=== PATIENT | female | born 1975 | race Caucasian/White ===

== ENCOUNTER 2022-10-10 07:40 | Outpatient (CLI) | payer OTHER, SELFPAY ==
[2022-10-10 10:48] LABS: Albumin* 4.4 g/dL (3.3-5.0); Chloride* 104 mmol/L (96-114); Potassium* 4.4 mmol/L (3.6-5.1); Sodium* 138 mmol/L (135-149)
[2022-10-10 10:50] LABS: Cholesterol* 218 mg/dL (90-199)
[2022-10-10 10:51] LABS: Alanine Aminotransferase* 67 U/L (4-35); Alkaline Phosphatase* 75 U/L (40-150); Aspartate Amino Transferase* 54 U/L (12-35); Bilirubin Total* 0.4 mg/dL (0.1-1.5); Blood Urea Nitrogen* 16 mg/dL (5-24); Calcium* 8.9 mg/dL (8.4-10.6); Carbon Dioxide* 26 mmol/L (20-32); Creatinine* 0.7 mg/dL (0.5-1.5); Estimated Glomerular Filt Rate 106 ml/min; Glucose* 111 mg/dL (60-115); Total Protein* 7.1 g/dL (6.0-8.3); Triglycerides* 178 mg/dL (40-149)
[2022-10-10 10:52] LABS: HDL Cholesterol* 46 mg/dL (>=50); LDL Cholesterol Calculated 136 mg/dL (<100)
[2022-10-10 11:40] LABS: Vitamin B12* 287 pg/mL (243-894)
== END 2022-10-10 07:41 | disposition home or self-care (01) ==
PROVIDERS: PCP Family Medicine; Visit Provider Family Medicine
DX: Z01.419 Encounter for gynecological examination (general) (routine) without abnormal findings (principal); R53.83 Other fatigue; E78.5 Hyperlipidemia, unspecified; R73.09 Other abnormal glucose; F41.9 Anxiety disorder, unspecified
CPT/HCPCS: 80053; 80061; 82607; 84439; 84443

== ENCOUNTER 2022-12-24 13:42 | Outpatient (CLI) | payer OTHER, SELFPAY ==
--- NOTE | 2022-12-24 14:00 | CRLHL7_ITS ---
For Patients: As a result of the Century Cures Act, medical imaging exams and procedure reports are released immediately into your electronic medical record. You may view this report before your referring provider. If you have questions, please contact your health care provider. BILATERAL SCREENING MAMMOGRAM WITH COMPUTER-AIDED DETECTION AND TOMOSYNTHESIS TECHNIQUE: CC and MLO views were obtained. These mammographic images have been obtained using full-field digital technique. These mammographic images were interpreted with the benefit of computer-aided detection. Breast Tomosynthesis was used in this interpretation. COMPARISON FILM: 06/01/20, 01/12/19, 05/10/17. FINDINGS: The breasts are heterogeneously dense, which may obscure small masses IMPRESSION: There is no radiographic evidence for malignancy. ASSESSMENT: BI-RADS Category 1: Negative RECOMMENDATION: Routine screening mammogram in 1 year. A lay language report of this examination will be provided to the patient. Christofer Wallace M.D. Diagnostic Radiologist [email or web address] CARISSA/Dictated by: Christofer Wallace MD @ 12/25/2022 1:10:00 PM (Electronically Signed)
== END 2022-12-24 13:43 | disposition home or self-care (01) ==
LOC: MAMMO 13:43
PROVIDERS: PCP Family Medicine; Visit Provider Family Medicine
DX: Z12.31 Encounter for screening mammogram for malignant neoplasm of breast (principal); R92.2 Inconclusive mammogram
CPT/HCPCS: 77063; 77067

== ENCOUNTER 2024-04-27 07:50 | Outpatient (CLI) | payer OTHER, SELFPAY ==
--- OUTSIDE RECORDS SUMMARY | 2024-04-27 13:07 | XMS_ITS | Clinical Summary ---
Author Organization [facility] Address [place], [place] [address] Care Team Providers Care Peanut Picker Name Role Phone Sunitha Tristan MD Primary Care Provider + Allergies No known active allergies Medications Medication Sig Dispensed Refills Start Date End Date Status levothyroxine (SYNTHROID) 50 mcg tablet Take 1 tablet by mouth before breakfast. 0 12/19/2016 Active Social History Tobacco Use Types Packs/Day Years Used Date Smoking Tobacco: Never Sex and Gender Information Value Date Recorded Sex Assigned at Not on file Gender Identity Not on file Sexual Orientation Not on file Obstetrics History Last Filed Vital Signs Vital Sign Reading Time Taken Comments Blood Pressure 123/86 12/19/2016 9:14 AM WELDING MACHINE OPERATOR ARC Pulse 68 12/19/2016 9:14 AM WELDING MACHINE OPERATOR ARC Temperature - - Respiratory Rate - - Oxygen Saturation 98% 12/19/2016 9:14 AM WELDING MACHINE OPERATOR ARC Inhaled Oxygen Concentration - - Weight 106.2 kg (234 lb 3.2 oz) 12/19/2016 9:14 AM WELDING MACHINE OPERATOR ARC Height - - Body Mass Index - - Plan of Treatment Health Maintenance Due Date Last Done Comments Tdap 1984 Depression screening for age 12+ 1985 HIV for age 15-65 1988 BMI (ht and wt on same day) for age 18+ 1991 Hepatitis C screening for age 18-79 1991 Tetanus booster 1993 Colonoscopy through age 75 2018 Lipids for age 45-75 2018 Mammogram for age 45-75 2018 Zoster (shingles) series for age 50+ (1 of 2) 2023 COVID-19 vaccine series ( - 2022-24 season) 2023 01/13/2021 Influenza for age 50-64 06/14/2024 Pap test for age 21-65 07/12/2024 , 07/12/2021, 03/21/2016, Additional history exists Pneumococcal series for age 6-64 Aged Out No longer eligible based on patient's age to complete this topic Procedures Procedure Name Priority Date/Time Associated Diagnosis Comments HPV THIN PREP Routine 07/12/2021 11:05 AM CDT from Last 3 Months or Most Recently Relevant to Health Maintenance Results * HPV HIGH RISK (07/12/2021 11:05 AM CDT) TYPE 16 Negative Negative 07/17/2021 11:17 AM CDT [facility] TYPE 18 Negative Negative 07/17/2021 11:17 AM CDT [facility] OTHER HIGH RISK TYPES Negative Negative 07/17/2021 11:17 AM CDT [facility] Other (Cervical/Vagina l) 07/12/2021 11:05 AM CDT 07/13/2021 10:33 AM CDT Narrative [facility] - 07/17/2021 11:17 AM CDT HPV types 16, 18, 31, 33, 35, 39, 45, 51, 52, 56, 58, 59, 66 and 68 DNA were undetectable or below the pre-set threshold. Methodology: Micah Ross 4800 HPV Test Sunitha Tristan MD MICROBIOLOGY [facility] [address] [place] [address], [place] from Last 3 Months or Most Recently Relevant to Health Maintenance Care Teams Peanut Picker Relationship Specialty Start Date End Date Sunitha Tristan MD [address] [place] [address] PCP - General Family Practice 12/11/16
== END 2024-04-27 07:51 | disposition home or self-care (01) ==
LOC: NFLDREF 13:05
PROVIDERS: PCP Family Medicine; Referring Provider Family Medicine; Visit Provider Family Medicine
DX: Z00.00 Encounter for general adult medical examination without abnormal findings (principal); E53.8 Deficiency of other specified B group vitamins; E78.5 Hyperlipidemia, unspecified; I10 Essential (primary) hypertension; R73.09 Other abnormal glucose; R79.89 Other specified abnormal findings of blood chemistry
CPT/HCPCS: 80053; 80061; 82607; 84439; 84443

== ENCOUNTER 2024-07-08 09:58 | Outpatient (CLI) | payer OTHER, SELFPAY ==
--- OUTSIDE RECORDS SUMMARY | 2024-07-08 10:06 | XMS_ITS | Clinical Summary ---
Author Organization [facility] Address [place], [place] [address] Care Team Providers Care Tool Clerk Name Role Phone Sunitha Tristan MD Primary [...] Comments Blood Pressure 123/86 12/19/2016 9:14 AM WEATHERIZATION COORDINATOR Pulse 68 12/19/2016 9:14 AM WEATHERIZATION COORDINATOR Temperature - - Respiratory Rate - - Oxygen Saturation 98% 12/19/2016 9:14 AM WEATHERIZATION COORDINATOR Inhaled Oxygen Concentration - - Weight 106.2 kg (234 lb 3.2 oz) 12/19/2016 9:14 AM WEATHERIZATION COORDINATOR Height - - Body Mass Index - [...] of 2) 2023 COVID-19 vaccine series ( season) 2024 01/13/2021 Influenza for age 50-64 06/14/2024 Pap test for age 21-65 07/12/2024 , 07/12/2021, 03/21/2016, Additional history exists Pneumococcal series for age 6-64 Aged Out No longer eligible based on patient's age to complete this topic Procedures Procedure Name Priority Date/Time Associated Diagnosis Comments HPV HIGH RISK Routine 07/12/2021 11:05 AM CDT from Last 3 Months or Most Recently Relevant to Health Maintenance Results * HPV HIGH RISK (07/12/2021 11:05 AM CDT) TYPE 16 Negative Negative 07/17/2021 11:17 AM CDT [facility] TRAL LABORATORY TYPE 18 Negative Negative 07/17/2021 11:17 AM CDT [facility] OTHER HIGH RISK TYPES Negative Negative 07/17/2021 11:17 AM CDT [facility] Other (Cervical/Vagina l) 07/12/2021 11:05 AM CDT 07/13/2021 10:33 AM CDT Narrative [facility] - 07/17/2021 11:17 AM CDT HPV types 16, 18, 31, 33, 35, 39, 45, 51, 52, 56, 58, 59, 66 and 68 DNA were undetectable or below the pre-set threshold. Methodology: Micah Ross 4800 HPV Test Sunitha Tristan MD MICROBIOLOGY [facility] [address] [place] [address], [place] from Last 3 Months or Most Recently Relevant to Health Maintenance Care Teams Tool Clerk Relationship Specialty Start Date End Date Sunitha Tristan MD [address] [place] [address] PCP - General Family Practice 12/11/16
--- NOTE | 2024-07-08 10:15 | CRLHL7_ITS ---
For Patients: As a result of the Century Cures Act, medical imaging exams and procedure reports are released immediately into your electronic medical record. You may view this report before your referring provider. If you have questions, please contact your health care provider. BILATERAL SCREENING MAMMOGRAM WITH COMPUTER-AIDED DETECTION AND TOMOSYNTHESIS TECHNIQUE: CC and MLO views were obtained. These mammographic images have been obtained using full-field digital technique. These mammographic images were interpreted with the benefit of computer-aided detection. Breast Tomosynthesis was used in this interpretation. COMPARISON FILM: 12/24/22, 06/01/20, 01/12/19. FINDINGS: There are scattered areas of fibroglandular density IMPRESSION: There is no radiographic evidence for malignancy. ASSESSMENT: BI-RADS Category 1: Negative RECOMMENDATION: Routine screening mammogram in 1 year. A lay language report of this examination will be provided to the patient. Christofer Wallace M.D. Diagnostic Radiologist [email or web address] CARISSA/Dictated by: Christofer Wallace MD @ 07/16/2024 12:21:00 PM (Electronically Signed)
== END 2024-07-08 09:59 | disposition home or self-care (01) ==
LOC: MAMMO 09:58
PROVIDERS: PCP Family Medicine; Visit Provider Family Medicine
DX: Z12.31 Encounter for screening mammogram for malignant neoplasm of breast (principal)
CPT/HCPCS: 77063; 77067

== ENCOUNTER 2024-10-26 08:08 | Outpatient (CLI) | payer BC, SELFPAY | END 2024-10-26 08:09 | disposition home or self-care (01) | LOC: NFLDREF 11-02 23:15 | PROVIDERS: PCP Family Medicine; Referring Provider Family Medicine; Visit Provider Family Medicine | DX: I10 Essential (primary) hypertension (principal); R73.09 Other abnormal glucose; E53.8 Deficiency of other specified B group vitamins; R79.89 Other specified abnormal findings of blood chemistry; E78.5 Hyperlipidemia, unspecified; Z11.59 Encounter for screening for other viral diseases | CPT/HCPCS: 80053; 80061; 82607; 84439; 84443; 86803 ==

== ENCOUNTER 2024-12-07 11:16 | Outpatient (CLI) | payer BC, SELFPAY ==
--- NOTE | 2024-12-07 12:29 | P.ANES_ITS ---
Anesthesia Charges Start Date/Time Anesthesia Start Date: 12/07/24 Anesthesia Start Time: 12:06 Stop Date/Time Anesthesia Stop Date: 12/07/24 Anesthesia Stop Time: 12:26 Coding CPT Codes CPT Codes: PHILLIP LWR INTST SCR COLSC - 78076 ([id number]) P2 - PATIENT W/MILD SYST DISEASE, QK - HOOP MACHINE OPERATOR 2-4 CNCRNT ANES PROC, QX - CRYSTAL INSPECTOR SVC W/ MD MED DIRECTION
--- NOTE | 2024-12-07 12:29 | P.ANES_ITS ---
Anesthesia Charges Start Date/Time Anesthesia Start Date: 12/07/24 Anesthesia Start Time: 12:06 Stop Date/Time Anesthesia Stop Date: 12/07/24 Anesthesia Stop Time: 12:26 Coding CPT Codes CPT Codes: PHILLIP LWR INTST SCR COLSC - 83831 ([id number]) P2 - PATIENT W/MILD SYST DISEASE, QK - CANDLE WRAPPING MACHINE OPERATOR 2-4 CNCRNT ANES PROC, QX - BOTTOM CEMENTER SVC W/ MD MED DIRECTION
--- NOTE | 2024-12-07 12:29 | W.ANESCHARGE ---
Anesthesia Charges Start Date/Time Anesthesia Start Date: 12/07/24 Anesthesia Start Time: 12:06 Stop Date/Time Anesthesia Stop Date: 12/07/24 Anesthesia Stop Time: 12:26 Coding CPT Codes CPT Codes: PHILLIP LWR INTST SCR COLSC - 76882 ([id number]) P2 - PATIENT W/MILD SYST DISEASE, QK - WASTE SALVAGER 2-4 CNCRNT ANES PROC, QX - CASH REGISTER OPERATOR SVC W/ MD MED DIRECTION
--- NOTE | 2024-12-07 12:29 | W.ANESCHARGE ---
Anesthesia Charges Start Date/Time Anesthesia Start Date: 12/07/24 Anesthesia Start Time: 12:06 Stop Date/Time Anesthesia Stop Date: 12/07/24 Anesthesia Stop Time: 12:26 Coding CPT Codes CPT Codes: PHILLIP LWR INTST SCR COLSC - 99989 ([id number]) P2 - PATIENT W/MILD SYST DISEASE, QK - MERINGUER 2-4 CNCRNT ANES PROC, QX - BUSINESS SUPPORT PROFESSIONAL SVC W/ MD MED DIRECTION
== END 2024-12-07 11:17 | disposition home or self-care (01) ==
LOC: OP CLINIC 11:17
PROVIDERS: PCP Family Medicine; Visit Provider Internal Medicine
DX: Z12.11 Encounter for screening for malignant neoplasm of colon (principal); Z86.0100 Personal history of colon polyps, unspecified; K57.30 Diverticulosis of large intestine without perforation or abscess without bleeding
CPT/HCPCS: 00812; 45378; J2704

== ENCOUNTER 2025-04-10 14:35 | Emergency (ER) | payer BC, SELFPAY ==
--- OUTSIDE RECORDS SUMMARY | 2025-04-10 14:37 | XMS_ITS | Clinical Summary ---
Author Organization [facility] Address [address] [place] [address] Care Team Providers Care Sports Marketer Name Role Phone Sunitha Tristan MD Primary Care Provider + Allergies No known active allergies Medications levothyroxine (SYNTHROID) 50 mcg tablet Take 1 tablet by mouth before breakfast. 0 12/19/2016 Active Social History Tobacco Use Types Packs/Day Years Used Date Smoking Tobacco: Never Comments Unknown Sex and Gender Information Value Date Recorded Sex Assigned at Not on file Legal Sex Female 3:04 PM CDT Gender Identity Not on file Sexual Orientation Not on file Obstetrics History Last Filed Vital Signs Vital Sign Reading Time Taken Comments Blood Pressure 123/86 12/19/2016 9:14 AM MAINFRAME CONSULTANT Pulse 68 12/19/2016 9:14 AM MAINFRAME CONSULTANT Temperature - - Respiratory Rate - - Oxygen Saturation 98% 12/19/2016 9:14 AM MAINFRAME CONSULTANT Inhaled Oxygen Concentration - - Weight 106.2 kg (234 lb 3.2 oz) 12/19/2016 9:14 AM MAINFRAME CONSULTANT Height - - Body Mass Index - - Plan of Treatment Health Maintenance Due Date Last Done Comments Tdap 1984 Depression screening for age 12+ 1985 HIV for age 15-65 1988 BMI (ht and wt on same day) for age 18+ 1991 Hepatitis C screening for ag e 18-79 1991 Hepatitis B series for 19+ ( 1 of 3 - 19+ 3-dose series) 1992 Tetanus booster 1993 Colonoscopy through age 75 2018 Lipids for age 45-75 2018 Mammogram for age 45-75 2018 Pneumococcal series for age 50+ (1 of 1 - PCV) 2023 Zoster (shingles) series for age 50+ (1 of 2) 2023 COVID-19 vaccine series (2 - season) 2024 01/13/2021 Pap test for age 21-65 07/12/2024 , 07/12/2021, 03/21/2016, Additional history exists Influenza Vaccine (Season Ended) 2025 Procedures Procedure Name Priority Date/Time Associated Diagnosis Comments HPV HIGH RISK Routine 07/12/2021 11:05 AM CDT from Last 3 Months or Most Recently Relevant to Health Maintenance Results * HPV HIGH RISK (07/12/2021 11:05 AM CDT) TYPE 16 Negative Negative 07/17/2021 11:17 AM CDT [facility] TYPE 18 Negative Negative 07/17/2021 11:17 AM CDT [facility] OTHER HIGH RISK TYPES Negative Negative 07/17/2021 11:17 AM CDT [facility] Other (Cervical/Vagina l) 07/12/2021 11:05 AM CDT 07/13/2021 10:33 AM CDT Narrative [facility] - 07/17/2021 11:17 AM CDT HPV types 16, 18, 31, 33, 35, 39, 45, 51, 52, 56, 58, 59, 66 and 68 DNA were undetectable or below the pre-set threshold. Methodology: Micah Ross 4800 HPV Test us Sunitha Tristan MD MICROBIOLOGY Final Re sult [facility] [address] [place] [address], from Last 3 Months or Most Recently Relevant to Health Maintenance Insurance [employer] [place] [id number] Care Teams Sports Marketer Relationship Specialty Start Date End Date Sunitha Tristan MD [address] [place] [address] PCP - General Family Practice 12/11/16
[2025-04-10 14:51] VITALS: BP 172/99; PULSE 72; RESP 20; TEMP 36.6; O2SAT 98; BMI 34.7
[2025-04-10 15:38] VITALS: BP 157/99; PULSE 62; RESP 16; O2SAT 95
--- NOTE | 2025-04-10 16:05 | ED_ITS ---
HPI - General Adult General Date Seen: 04/10/25 Chief complaint: Dizziness/Vertigo Stated complaint: BP low, not feeling well Time Seen by Provider: 04/10/25 14:57 History of Present Illness HPI narrative: Patient is a 50-year-old woman with a history of hypertension, diabetes, tobacco use. She presents with a friend stating that for the past couple of weeks she has been feeling just a little bit off, sometimes her arms feel sort of heavy or floaty and sometime she feels like she is floating in water. She does not have the ability to describe it any better than that. She became very upset while discussing the symptoms with me. She says that she is a single mom, she feels very guilty because she resume smoking a few years ago, she is not always good about taking her blood pressure medicines every day, she forgets once or twice a week. She also sometimes forgets to take her metformin. She notes that she had lost some weight but she has regained that. She had a very stressful few weeks recently according to her friend, and she notes that she does have problems with anxiety and panic although she has not had a panic attack for a number of years. She has not done anything to manage anxiety, she says she generally just ignores it. Overall, today she just became in a panic that she might be about to have heart attack because of her inability to follow through on taking care of her health. She said she just had an overwhelming sense of worry and needed to come in to talk to somebody. She does not have any chest pain difficulty breathing, lightheadedness or fainting. She does not describe any other physical symptoms other than what is presented above. Related Data Home Medications ?Medication ?Instructions ?Recorded ?Confirmed terbinafine HCl 250 mg tablet 250 mg PO QDAY 04/30/24 10/28/24 Previous Rx's ?Medication ?Instructions ?Recorded irbesartan 150 mg tablet 150 mg PO QDAY #90 tabs 04/13 06/06 levothyroxine 50 mcg tablet 50 mcg PO QDAY #90 tabs metformin 500 mg tablet,extended 1,000 mg (2 x 500 mg) PO BID #360 10/28/24 release 24 hr tabs peg 3350-electrolytes 236 240 ml PO Q10M #4,000 mL 03/07 gram-22.74 gram-6.74 gram-5.86 gram solution (Golytely) Allergies Allergy/AdvReac Type Severity Reaction Status Date / Time No Known Allergies Allergy Unknown Verified 04/10/25 14:49 Review of Systems Status of ROS: Reports: 10 or more systems reviewed and unremarkable except as noted in History and below [facility] Medical History Body mass index (BMI) of 30.0 to 39.9 Overweight (BMI 25.0-29.9) ?E66.3 - Overweight (ICD-10) HTN (hypertension) (~06/2023) ?I10 - Essential (primary) hypertension (ICD-10) Migraine headache ?G43.909 - Migraine, unspecified, not intractable, without status migrainosus (ICD-10) Menorrhagia (2020) ?N92.0 - Excessive and frequent menstruation with regular cycle (ICD-10) Irregular menstrual cycle ?N92.6 - Irregular menstruation, unspecified (ICD-10) Insomnia disorder ?G47.00 - Insomnia, unspecified (ICD-10) Hypothyroidism ?E03.9 - Hypothyroidism, unspecified (ICD-10) Dyslipidemia ?E78.5 - Hyperlipidemia, unspecified (ICD-10) Chronic gastroesophageal reflux disease ?K21.9 - Gastro-esophageal reflux disease without esophagitis (ICD-10) Bipolar II disorder ?F31.81 - Bipolar II disorder (ICD-10) Anxiety and depression ?F41.9 - Anxiety disorder, unspecified (ICD-10) ?F32.A - Depression, unspecified (ICD-10) Surgical History S/P dilatation and curettage (09/2021) ?Z98.890 - Other specified postprocedural states (ICD-10) Status post adenoidectomy ?Z90.89 - Acquired absence of other organs (ICD-10) History of colonoscopy (11/19/19) ?Z98.890 - Other specified postprocedural states (ICD-10) History of section ?Z98.891 - History of uterine scar from previous surgery (ICD-10) Family History Family/Other Bipolar disorder Lung cancer Aunt Bipolar disorder Uncle Bipolar disorder Mother Migraine headache Sister Colon cancer, Onset Age: 42 Liposarcoma, Onset Age: 45 Social History Narrative: , 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[employer], 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 no regular exercise non-smoker social drinker- 1-2/week What is your current living situation?: I presently have a place to live Problems where you live: no known problems In the past 12 months, utilities in danger of being shut off: no In past 12 months, lack of transportation kept you from medical appts, meetings, work, or getting things needed for daily living: no In the past 12 mos, have been you worried that your food would run out before you had money to buy more?: never true In the past 12 mos, the food you bought just didn't last and you didn't have money to buy more?: never true Smoking Status: Former smoker How often do you have a drink containing alcohol: 2-4 times a month AUDIT-C Alcohol total score: 2 Non-prescribed substance use: marijuana (any form) How often does anyone, including family, friends and others, physically hurt you : never How often does anyone, including family, friends and others, insult or talk down to you: never How often does anyone, including family, friends and others, threaten you with harm: never How often does anyone, including family, friends and others, scream or curse at you: never Exam Narrative: Exam Narrative: Vital signs reviewed In general, alert, nontoxic in age woman. She is breathing easily. Head: Normocephalic, atraumatic. Eyes: Sclera clear. Pupils equal and reactive. ENT: Mucous membranes moist. Neck: Supple without adenopathy. Heart: Regular rate and rhythm without murmur. Lungs: Clear. No increased work of breathing, crackles or wheezes. Abdomen: Soft, nontender to palpation. Extremities: Well perfused, pulses intact. No significant edema. Neurologic: Alert, conversant. Speech fluent, face symmetric. Moves all extremities equally. Skin: Warm, dry well perfused. Affect: Somewhat labile, very tearful to start although she did settle down with time. Const: Vital Signs, click to edit/add: Vital Signs - 24 hr 04/10/25 14:51 04/10/25 15:38 Temperature 97.9 F Pulse Rate [Pulse Oximeter] 72 62 Respiratory Rate 20 16 Blood Pressure [Ri ght Upper Arm] 172/99 H 157/99 H Pulse Oximetry 98 95 Oxygen Delivery Me thod Room Air Room Air Course Course ED Course: We had a long conversation about her symptoms. She is here with a very supportive friend. She has fairly good insight into the fact that she has a lot of anxiety and guilt around her health. We talked about ways to better manage her medications in terms of remembering to take them every day. We talked about considering a conversation with her primary doctor to address management for anxiety, as that may help her better address her smoking and eating. We talked about visiting [facility] to address any symptoms that might be coming from a veronica menopausal state. As we talked, she became much less agitated and tearful, and the symptoms that she came in with entirely resolved. We discussed doing some testing to help reassure her that her heart looked okay, but she says at this point that she would worry more about the expense of doing any testing. She feels comfortable at this time foregoing that for the time being, and I think overall that that is reasonable. I do not see anything in her presentation that would raise my concern for this being acute coronary syndrome, PE, dissection, stroke, or other emergent medical condition. Assured her that if she is feeling worse or needs more help, she can return to the ER at any time. Otherwise, I recommended primary care follow-up to address anxiety and [facility] follow-up to address perimenopause. Blood pressure remains a little elevated at 150 7/99 but is a little improved. Vital Signs Vital signs: Initial Vital Signs Temperature 97.9 F 04/10/25 14:51 Temperature Source Temporal Artery Scan 04/10/25 14:51 Pulse Rate 72 04/10/25 14:51 Respiratory Rate 20 04/10/25 14:51 Blood Pressure 172/99 H 04/10/25 14:51 Blood Pressure Mean 123 H 04/10/25 14:51 Pulse Oximetry 98 04/10/25 14:51 Oxygen Delivery Method Room Air 04/10/25 14:51 Vital Signs Temperature 97.9 F 04/10/25 14:51 Pulse Rate 72 04/10/25 14:51 Respiratory Rate 20 04/10/25 14:51 Blood Pressure 172/99 H 04/10/25 14:51 Pulse Oximetry 98 04/10/25 14:51 Oxygen Delivery Method Room Air 04/10/25 14:51 Temperature 97.9 F 04/10/25 14:51 Pulse Rate 62 04/10/25 15:38 Respiratory Rate 16 04/10/25 15:38 Blood Pressure 157/99 H 04/10/25 15:38 Pulse Oximetry 95 04/10/25 15:38 Oxygen Delivery Method Room Air 04/10/25 15:38 Discharge Plan Discharge Clinical Impression: Anxiety Patient Disposition: Home, Self-Care Condition: Improved Instructions: Anxiety (ED) Additional Instructions: Consider following up with primary care to discuss management of anxiety. I would recommend making an appointment with [facility], , to discuss possible hormone management for perimenopause. As we discussed, find a way to link your morning medications with a reliable morning habit so that you take them every day. If you are feeling worse or have new symptoms, please return any time for re-evaluation. Prescriptions: No Action terbinafine HCl 250 mg tablet 250 mg PO QDAY irbesartan 150 mg tablet 150 mg PO QDAY Qty: 90 3RF metformin 500 mg tablet extended release 24 hr 1,000 mg PO BID Qty: 360 3RF levothyroxine 50 mcg tablet 50 mcg PO QDAY Qty: 90 1RF peg 3350-electrolytes [Golytely] 236-22.74-6.74 -5.86 gram recon soln 240 ml PO Q10M Qty: 4000 0RF Rx Instructions: until fecal effluent is clear Follow Up/Referrals: Sunitha Tristan MD [Primary Care Provider, Family Practice] Stand Alone Forms: [employer] Info Instructions
== END 2025-04-10 15:43 | disposition home or self-care (01) ==
LOC: ED 15:37
PROVIDERS: Emergency Provider Emergency Medicine; PCP Family Medicine
DX: F41.9 Anxiety disorder, unspecified (principal)
CPT/HCPCS: 99284

== ENCOUNTER 2025-05-03 07:30 | Outpatient (CLI) | payer BC, SELFPAY | END 2025-05-03 07:31 | disposition home or self-care (01) | LOC: NFLDREF 16:49 | PROVIDERS: PCP Family Medicine; Referring Provider Family Medicine; Visit Provider Family Medicine | DX: E03.9 Hypothyroidism, unspecified (principal); R79.89 Other specified abnormal findings of blood chemistry; E78.5 Hyperlipidemia, unspecified; E53.8 Deficiency of other specified B group vitamins; R73.03 Prediabetes | CPT/HCPCS: 80053; 80061; 82607; 84439; 84443 ==